=== PATIENT | male | born 1940 | race Caucasian/White ===

== ENCOUNTER 2018-01-08 10:44 | Inpatient (IN) | payer BC, OTHER ==
[2018-01-08 13:48] VITALS: BMI 29.2
--- NOTE | 2018-01-08 15:44 | CP.PCM.HP ---
History of Present Illness - History of Present Illness History of Present Illness: 77 y/o male with PMH CAD s/p PCI 14 years ago, HTN, Dyslipidemia was admitted to [facility] with chest pain and [place]. He underwent CABG on 12/28/17 and at present doing well. Post op developed lower extremity edema and difficulty with am bulation . t present transferred for admission to TCu for physical therapy At present complains of pain to both lower extremities and feeling tired . Denies any chest pain , palpitations,SOB. Denies any fever , chills, nausea vomiting , urinary sx r changes in bowel movements . 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, denies ETOH, drug or smoking Code status; Full Present on Admission - Present on Admission Any Indicators Present on Admission: No Review of Systems - Review of Systems All systems: reviewed and no additional remarkable complaints except Past Patient History - Infectious Disease Hx of Infectious Diseases: None - Tetanus Immunizations Tetanus Immunization: Unknown - Past Medical History & Family History Past Medical History?: Yes Past Family History: Reviewed and not pertinent - Past Social History Smoking Status: Never Smoked Chewing Tobacco Use: No Cigar Use: No Alcohol: None Drugs: Denies Home Situation {Lives}: Alone Domestic Violence: Negative Meds Allergies/Adverse Reactions: Allergies Allergy/AdvReac Type Severity Reaction Status Date / Time No Known Allergies Allergy Verified 01/08/18 13:44 Physical Exam - Constitutional Appears: Non-toxic, No Acute Distress - Head Exam Head Exam: ATRAUMATIC, NORMAL INSPECTION, NORMOCEPHALIC - Eye Exam Eye Exam: EOMI, Normal appearance, PERRL Pupil Exam: NORMAL ACCOMODATION - ENT Exam ENT Exam: Mucous Membranes Moist, Normal Exam - Respiratory Exam Respiratory Exam: Clear to Auscultation Bilateral, NORMAL BREATHING PATTERN. absent: Rales, Rhonchi, Wheezes - Cardiovascular Exam Cardiovascular Exam: REGULAR RHYTHM, RRR, +S1, +S2. absent: JVD Additional comments: middle chest CABG scar healing well - GI/Abdominal Exam GI & Abdominal Exam: Normal Bowel Sounds, Soft. absent: Distended, Guarding, Rebound, Tenderness - Rectal Exam Rectal Exam: Deferred - Extremities Exam Extremities exam: Positive for: pedal edema (2 +), tenderness, pedal pulses present - Back Exam Back exam: NORMAL INSPECTION - Neurological Exam Neurological exam: Alert, CN II-XII Intact, Oriented x3 - Psychiatric Exam Psychiatric exam: Normal Affect - Skin Skin Exam: Dry, Warm Assessment & Plan - Assessment and Plan (Free Text) Assessment: 77 y/o male with PMH CAD s/p PCI 14 years ago, HTN, Dyslipidemia was admitted to [facility] with chest pain and CA. He underwent CABG on 12/28/17 and at present doing well. Post op developed lower extremity edema and difficulty with ambulation . t present transferred for admission to TCu for physical therapy At present complains of pain to both lower extremities and feeling tired . Denies any chest pain , palpitations,SOB. Denies any fever , chills, nausea vomiting , urinary sx r changes in bowel movements . 1. Generalized weakness admit to TCU for PT 2. s/p CABG resume home meds 3.Hypertension resume home meds 4. Dyslipidemia 5. Lower extremity edema continue lasix and PT Consider Doppler US 6. Anemia Hgb 8.8 Most likely acute blood loss during surgery start Ferrous sulfate PO 7. DVT prophylaxis on Heparin
[2018-01-09 06:33] LABS: RBC 2.85 Mil/uL (4.40-5.90); WHITE BLOOD COUNT 10.3 K/uL (4.8-10.8)
[2018-01-09 06:34] LABS: BASO # 0.1 K/uL (0.0-0.2); BASO % 0.6 % (0.0-2.0); EOS # 0.5 K/uL (0.0-0.7); EOS % 5.3 % (0.0-4.0); LYMPH % 9.3 % (20.0-40.0); MEAN CELL VOLUME 94.7 fl (80.0-94.0); MEAN CORPUSCULAR HEMOGLOBIN 31.7 pg (27.0-31.0); MEAN CORPUSCULAR HGB CONC 33.5 g/dL (33.0-37.0); MEAN PLATELET VOLUME 9.2 fl (7.2-11.7); MONO # 1.1 K/uL (0.0-0.8); MONO % 10.6 % (0.0-10.0); NEUT # 7.7 K/uL (1.8-7.0); NEUT % 74.2 % (50.0-75.0); NRBC % 0.1 % (0.0-0.0); PLATELET COUNT 377 K/uL (130-400); RED CELL DISTRIBUTION WIDTH 17.9 % (11.5-14.5)
[2018-01-09 06:46] LABS: ALB/GLOB RATIO 0.9 (1.0-2.1); ALBUMIN 3.1 g/dL (3.5-5.0); CALCIUM 8.9 mg/dL (8.4-10.2)
[2018-01-09 06:52] LABS: INR 1.1; PROTHROMBIN TIME 12.4 Seconds (9.8-13.1)
[2018-01-09 06:55] LABS: PARTIAL THROMBOPLASTIN TIME 30.8 Seconds (25.6-37.1)
[2018-01-09] MEDS: Multivitamin With Minerals Tab PO SCH (08:25)
[2018-01-09] MEDS: Pantoprazole 40 mg EC Tab PO SCH (08:28)
[2018-01-09] MEDS ORDERED: Pantoprazole 40 mg EC Tab PO SCH (09:00)
[2018-01-09 09:52] LABS: ANISOCYTOSIS SLIGHT; BANDS 1 % (0-2); EOSINOPHIL 2 % (0-7); HYPOCHROMIC SLIGHT; LYMPHOCYTE 9 % (20-50); MONOCYTE 12 % (0-10); NEUTROPHIL 76 % (42-75); PLATELET ESTIMATE NORMAL (NORMAL); TOTAL CELLS COUNTED 100
[2018-01-09] MEDS: Enoxaparin 40 mg Syringe SC SCH (10:08)
[2018-01-10] MEDS: Enoxaparin 40 mg Syringe SC SCH (08:37)
[2018-01-10] MEDS: Multivitamin With Minerals Tab PO SCH (08:39)
[2018-01-10] MEDS: Pantoprazole 40 mg EC Tab PO SCH (08:39)
--- NOTE | 2018-01-10 11:25 | US ---
Date of service: 01/09/2018 PROCEDURE: Bilateral lower extremity venous duplex Doppler. HISTORY: R/O DVT COMPARISON: None available. TECHNIQUE: Bilateral common femoral, superficial femoral, popliteal and posterior tibial veins were evaluated. Flow was assessed with color Doppler, compressibility, assessment of phasic flow and augmentation response. FINDINGS: COMMON FEMORAL VEIN: Right CFV: Unremarkable. Left CFV: Unremarkable. SUPERFICIAL FEMORAL VEIN: Right SFV: Unremarkable. Left SFV: Unremarkable. POPLITEAL VEIN: Right Popliteal: Unremarkable. Left Popliteal: Unremarkable. POSTERIOR TIBIAL VEIN: Right PTV: Unremarkable. Left PTV: Unremarkable. OTHER FINDINGS: None. IMPRESSION: No evidence of deep venous thrombosis in the right or left lower extremity..
--- NOTE | 2018-01-10 11:34 | CP.PCM.PN ---
Subjective - Date & Time of Evaluation Date of Evaluation: 01/10/18 Time of Evaluation: 11:30 - Subjective Subjective: Patient seen and examined bedside . Sitting in the chair in NAD. Feeling a little better . still complains of edema , swelling and discomfort from his LE . Has some increased warmth Hemodynamically stable, afebrile No acute issues overnight doppler Us negative for DVT Objective - Vital Signs/Intake and Output Vital Signs (last 24 hours): Temp Pulse Resp BP Pulse Ox 97.5 F L 68 20 110/52 L 99 01/10/18 08:36 01/10/18 08:36 01/10/18 08:36 01/10/18 08:39 01/10/18 08:36 - Medications Medications: Current Medications Acetaminophen (Tylenol 325mg Tab) 650 mg PO Q6 PRN PRN Reason: Pain, Mild (1-3) Last Admin: 01/08/18 20:50 Dose: 650 mg Acetaminophen (Tylenol 325mg Tab) 650 mg PO Q6 PRN PRN Reason: Fever >100.4 F Amiodarone HCl (Cordarone) 200 mg PO Q12 [facility] Last Admin: 01/10/18 08:39 Dose: 200 mg Amlodipine Besylate (Norvasc) 5 mg PO DAILY [facility] Last Admin: 01/10/18 08:39 Dose: 5 mg Aspirin (Aspirin Chewable) 81 mg PO DAILY [facility] Last Admin: 01/10/18 08:38 Dose: 81 mg Atorvastatin Calcium (Lipitor) 20 mg PO HS [facility] Last Admin: 01/09/18 21:42 Dose: 20 mg Docusate Sodium (Colace) 100 mg PO BID [facility] Last Admin: 01/10/18 08:38 Dose: 100 mg Enoxaparin Sodium (Lovenox) 40 mg SC DAILY [facility]; Protocol Last Admin: 01/10/18 08:37 Dose: 40 mg Fenofibrate (Tricor) 145 mg PO DAILY [facility] Last Admin: 01/10/18 08:39 Dose: 145 mg Ferrous Sulfate (Feosol) 325 mg PO Q12 [facility] Last Admin: 01/10/18 08:39 Dose: 325 mg Furosemide (Lasix) 40 mg PO DAILY [facility] Last Admin: 01/10/18 08:39 Dose: 40 mg Metoprolol Tartrate (Lopressor) 50 mg PO Q12 [facility] Last Admin: 01/10/18 08:39 Dose: 50 mg Multivitamins/Minerals (Therapeutic-M Tab) 1 tab PO DAILY [facility] Last Admin: 01/10/18 08:39 Dose: 1 tab Pantoprazole Sodium (Protonix Ec Tab) 40 mg PO DAILY [facility] Last Admin: 01/10/18 08:39 Dose: 40 mg Temazepam (Restoril) 15 mg PO DAILY PRN PRN Reason: bedtime Last Admin: 01/09/18 21:43 Dose: 15 mg - Labs Labs: 01/09/18 05:40 01/09/18 05:40 PT 12.4 Seconds (9.8-13.1) 01/09/18 05:40 INR 1.1 01/09/18 05:40 APTT 30.8 Seconds (25.6-37.1) 01/09/18 05:40 - Constitutional Appears: Non-toxic, No Acute Distress - Head Exam Head Exam: ATRAUMATIC, NORMAL INSPECTION, NORMOCEPHALIC - Eye Exam Eye Exam: EOMI, Normal appearance, PERRL Pupil Exam: NORMAL ACCOMODATION - ENT Exam ENT Exam: Mucous Membranes Moist, Normal Exam - Neck Exam Neck Exam: Full ROM, Normal Inspection - Respiratory Exam Respiratory Exam: Clear to Ausculation Bilateral, NORMAL BREATHING PATTERN. absent: Rales, Rhonchi, Wheezes - Cardiovascular Exam Cardiovascular Exam: REGULAR RHYTHM, RRR, +S1, +S2. absent: JVD Additional comments: midline chest surgical incision healed well, no erythema - GI/Abdominal Exam GI & Abdominal Exam: Soft, Normal Bowel Sounds - Extremities Exam Additional comments: bilateral LE edema 3 %+ surgical incisions to Le healing well Some increased redness and warmth - Back Exam Back Exam: NORMAL INSPECTION - Neurological Exam Neurological Exam: Alert, Awake, CN II-XII Intact, Oriented x3 - Psychiatric Exam Psychiatric exam: Normal Affect - Skin Skin Exam: Dry, Warm Assessment and Plan - Assessment and Plan (Free Text) Assessment: 77 y/o male with PMH CAD s/p PCI 14 years ago, HTN, Dyslipidemia was admitted to [facility] with chest pain and [place]. He underwent CABG on 12/28/17 and at present doing well. Post op developed lower extremity edema and difficulty with ambulation . Admitted in TCU for physical therapy At present complains of pain to both lower extremities and some warmth 1. Generalized weakness feeling better Continue PT/OT 2. s/p CABG continue current therapy Statin , ASA,metoprolol,amiodarone, lasix 3.Hypertension controlled on Norvasc , Metoprolol, lasix 4. Dyslipidemia on Sttain 5. Lower extremity edema continue lasix and PT Doppler US showed no DVT Start Keflex Po empirically for cellulitis 6. Anemia Hgb 8.8 Most likely acute blood loss during surgery on Ferrous sulfate PO 7. DVT prophylaxis on Lovenox
[2018-01-11] MEDS: Enoxaparin 40 mg Syringe SC SCH (09:28)
[2018-01-11] MEDS: Pantoprazole 40 mg EC Tab PO SCH (09:30)
[2018-01-11] MEDS: Multivitamin With Minerals Tab PO SCH (09:30)
[2018-01-12] MEDS: Enoxaparin 40 mg Syringe SC SCH (09:35)
[2018-01-12] MEDS: Multivitamin With Minerals Tab PO SCH (09:36)
[2018-01-12] MEDS: Pantoprazole 40 mg EC Tab PO SCH (09:38)
[2018-01-13] MEDS: Enoxaparin 40 mg Syringe SC SCH (08:33)
[2018-01-13] MEDS: Multivitamin With Minerals Tab PO SCH (08:34)
[2018-01-13] MEDS: Pantoprazole 40 mg EC Tab PO SCH (08:34)
[2018-01-14] MEDS: Enoxaparin 40 mg Syringe SC SCH (09:03)
[2018-01-14] MEDS: Multivitamin With Minerals Tab PO SCH (09:05)
[2018-01-14] MEDS: Pantoprazole 40 mg EC Tab PO SCH (09:06)
[2018-01-15 08:28] VITALS: RESP 20
[2018-01-15] MEDS: Enoxaparin 40 mg Syringe SC SCH (08:54)
[2018-01-15] MEDS: Pantoprazole 40 mg EC Tab PO SCH (08:54)
[2018-01-15] MEDS: Multivitamin With Minerals Tab PO SCH (08:55)
--- NOTE | 2018-01-15 12:29 | CP.PCM.PN ---
Subjective - Date & Time of Evaluation Date of Evaluation: 01/15/18 Time of Evaluation: 12:28 - Subjective Subjective: pt doing well no complaints at this time denies cp sob n/v/c/d hd stable nad Objective - Vital Signs/Intake and Output Vital Signs (last 24 hours): Temp Pulse Resp BP Pulse Ox 97.8 F 85 20 132/85 98 01/15/18 08:25 01/15/18 08:54 01/15/18 08:25 01/15/18 08:54 01/15/18 08:25 Vitals Reviewed GEN: WDWN, alert, cooperative HEENT: NCAT, PERRL, EOMI HEART: RRR, +S1S2, NO MRG LUNG: CTAB, NO WRR ABD: soft, NT, ND, No HSM, No masses EXT: normal pedal pulses NEURO: awake, alert SKIN: warm, dry PSYCH: normal mood, normal affect - Medications Medications: Current Medications Acetaminophen (Tylenol 325mg Tab) 650 mg PO Q6 PRN PRN Reason: Pain, Mild (1-3) Last Admin: 01/08/18 20:50 Dose: 650 mg Acetaminophen (Tylenol 325mg Tab) 650 mg PO Q6 PRN PRN Reason: Fever >100.4 F Amiodarone HCl (Cordarone) 200 mg PO Q12 [facility] Last Admin: 01/15/18 08:52 Dose: 200 mg Amlodipine Besylate (Norvasc) 5 mg PO DAILY [facility] Last Admin: 01/15/18 08:54 Dose: 5 mg Aspirin (Aspirin Chewable) 81 mg PO DAILY [facility] Last Admin: 01/15/18 08:52 Dose: 81 mg Atorvastatin Calcium (Lipitor) 20 mg PO HS [facility] Last Admin: 01/14/18 21:53 Dose: 20 mg Cephalexin Monohydrate (Keflex) 500 mg PO Q8 [facility]; Protocol Last Admin: 01/15/18 08:53 Dose: 500 mg Docusate Sodium (Colace) 100 mg PO BID [facility] Last Admin: 01/15/18 08:52 Dose: 100 mg Enoxaparin Sodium (Lovenox) 40 mg SC DAILY [facility]; Protocol Last Admin: 01/15/18 08:54 Dose: 40 mg Fenofibrate (Tricor) 145 mg PO DAILY [facility] Last Admin: 01/15/18 08:55 Dose: 145 mg Ferrous Sulfate (Feosol) 325 mg PO Q12 [facility] Last Admin: 01/15/18 08:53 Dose: 325 mg Furosemide (Lasix) 40 mg PO DAILY [facility] Last Admin: 01/15/18 08:53 Dose: 40 mg Metoprolol Tartrate (Lopressor) 50 mg PO Q12 [facility] Last Admin: 01/15/18 08:53 Dose: 50 mg Multivitamins/Minerals (Therapeutic-M Tab) 1 tab PO DAILY [facility] Last Admin: 01/15/18 08:55 Dose: 1 tab Pantoprazole Sodium (Protonix Ec Tab) 40 mg PO DAILY [facility] Last Admin: 01/15/18 08:54 Dose: 40 mg Temazepam (Restoril) 15 mg PO DAILY PRN PRN Reason: bedtime Last Admin: 01/13/18 21:18 Dose: 15 mg - Labs Labs: 01/09/18 05:40 01/09/18 05:40 PT 12.4 Seconds (9.8-13.1) 01/09/18 05:40 INR 1.1 01/09/18 05:40 APTT 30.8 Seconds (25.6-37.1) 01/09/18 05:40 Assessment and Plan - Assessment and Plan (Free Text) Plan: 77 y/o male with PMH CAD s/p PCI 14 years ago, HTN, Dyslipidemia was admitted to [facility] with chest pain and [place]. He underwent CABG on 12/28/17 and at present doing well. Post op developed lower extremity edema and difficulty with ambulation . Admitted in TCU for physical therapy At present complains of pain to both lower extremities and some warmth 1. Generalized weakness feeling better Continue PT/OT 2. s/p CABG continue current therapy Statin, ASA, metoprolol, amiodarone, lasix 3.Hypertension controlled on Norvasc, Metoprolol, lasix 4. Dyslipidemia on Statin 5. Lower extremity edema continue lasix and PT Doppler US showed no DVT Start Keflex Po empirically for cellulitis 6. Anemia Hgb 8.8 Most likely acute blood loss during surgery on Ferrous sulfate PO 7. DVT prophylaxis on Lovenox
[2018-01-16] MEDS: Enoxaparin 40 mg Syringe SC SCH (08:50)
[2018-01-16] MEDS: Pantoprazole 40 mg EC Tab PO SCH (08:51)
[2018-01-16] MEDS: Multivitamin With Minerals Tab PO SCH (08:51)
[2018-01-17] MEDS: Multivitamin With Minerals Tab PO SCH (09:27)
[2018-01-17] MEDS: Pantoprazole 40 mg EC Tab PO SCH (09:27)
[2018-01-17 13:19] LABS: HEMOGLOBIN 11.2 g/dL (12.0-18.0); MEAN CORPUSCULAR HEMOGLOBIN 32.3 pg (27.0-31.0); MEAN CORPUSCULAR HGB CONC 33.3 g/dL (33.0-37.0); RBC 3.48 Mil/uL (4.40-5.90); RED CELL DISTRIBUTION WIDTH 19.2 % (11.5-14.5); WHITE BLOOD COUNT 5.8 K/uL (4.8-10.8)
[2018-01-17 13:38] LABS: CALCIUM 9.7 mg/dL (8.4-10.2)
[2018-01-17] MEDS: Enoxaparin 40 mg Syringe SC SCH (17:28)
--- NOTE | 2018-01-17 17:39 | CP.PCM.PN ---
Subjective - Date & Time of Evaluation Date of Evaluation: 01/17/18 Time of Evaluation: 16:00 - Subjective Subjective: Patient seen and examined. Denied any complaint. Objective - Vital Signs/Intake and Output Vital Signs (last 24 hours): Temp Pulse Resp BP Pulse Ox 98.1 F 66 20 105/65 98 01/17/18 16:32 01/17/18 16:32 01/17/18 16:32 01/17/18 16:32 01/17/18 16:32 - Medications Medications: Current Medications Acetaminophen (Tylenol 325mg Tab) 650 mg PO Q6 PRN PRN Reason: Pain, Mild (1-3) Last Admin: 01/08/18 20:50 Dose: 650 mg Acetaminophen (Tylenol 325mg Tab) 650 mg PO Q6 PRN PRN Reason: Fever >100.4 F Amiodarone HCl (Cordarone) 200 mg PO Q12 [facility] Last Admin: 01/17/18 09:25 Dose: 200 mg Amlodipine Besylate (Norvasc) 5 mg PO DAILY [facility] Last Admin: 01/17/18 09:27 Dose: 5 mg Aspirin (Aspirin Chewable) 81 mg PO DAILY [facility] Last Admin: 01/17/18 09:25 Dose: 81 mg Atorvastatin Calcium (Lipitor) 20 mg PO HS [facility] Last Admin: 01/16/18 21:52 Dose: 20 mg Docusate Sodium (Colace) 100 mg PO BID [facility] Last Admin: 01/17/18 17:28 Dose: 100 mg Enoxaparin Sodium (Lovenox) 40 mg SC DAILY [facility]; Protocol Last Admin: 01/17/18 17:28 Dose: 40 mg Fenofibrate (Tricor) 145 mg PO DAILY [facility] Last Admin: 01/17/18 09:27 Dose: 145 mg Ferrous Sulfate (Feosol) 325 mg PO Q12 [facility] Last Admin: 01/17/18 09:26 Dose: 325 mg Furosemide (Lasix) 40 mg PO DAILY [facility] Last Admin: 01/17/18 09:32 Dose: 40 mg Metoprolol Tartrate (Lopressor) 50 mg PO Q12 [facility] Last Admin: 01/17/18 09:26 Dose: 50 mg Multivitamins/Minerals (Therapeutic-M Tab) 1 tab PO DAILY [facility] Last Admin: 01/17/18 09:27 Dose: 1 tab Pantoprazole Sodium (Protonix Ec Tab) 40 mg PO DAILY [facility] Last Admin: 01/17/18 09:27 Dose: 40 mg Temazepam (Restoril) 15 mg PO DAILY PRN PRN Reason: bedtime Last Admin: 01/16/18 21:50 Dose: 15 mg - Labs Labs: 01/17/18 13:14 01/17/18 13:14 PT 12.4 Seconds (9.8-13.1) 01/09/18 05:40 INR 1.1 01/09/18 05:40 APTT 30.8 Seconds (25.6-37.1) 01/09/18 05:40 - Constitutional Appears: No Acute Distress - Head Exam Head Exam: ATRAUMATIC - Eye Exam Eye Exam: absent: Scleral icterus - ENT Exam ENT Exam: Mucous Membranes Moist - Neck Exam Neck Exam: absent: Meningismus - Respiratory Exam Respiratory Exam: absent: Chest Wall Tenderness, Rales, Rhonchi, Wheezes, Respiratory Distress - Cardiovascular Exam Cardiovascular Exam: REGULAR RHYTHM, +S1, +S2 - GI/Abdominal Exam GI & Abdominal Exam: Soft. absent: Tenderness - Rectal Exam Rectal Exam: Deferred - Back Exam Back Exam: NORMAL INSPECTION - Neurological Exam Neurological Exam: Alert, Oriented x3 - Psychiatric Exam Psychiatric exam: Flat Affect, Normal Mood - Skin Skin Exam: Dry, Intact Assessment and Plan - Assessment and Plan (Free Text) Assessment: 77 yo male with history of CAD (PCI 14 years ago), HTN and HLD was admitted at [facility] because of acute [place]. Patient underwent CABG on 12/28/17 and at present was doing well. He was admitted in TCU for physical therapy At present complains of pain to both lower extremities and some warmth 1. Post CABG continue cardiac PT continue statin, ASA, Metoprolol, Amiodarone, Lasix 2. Generalized weakness continue to improve continue PT/OT 3. Hypertension BP controlled on Norvasc, Metoprolol, Lasix 4. HLD continue Lipitor 5. Lower extremity edema continue Lasix and PT Venous doppler negative for DVT 6. Anemia Hgb 8.8 Most likely from blood loss during surgery continue FeSO4 7. DVT prophylaxis on Lovenox
[2018-01-18] MEDS: Enoxaparin 40 mg Syringe SC SCH (08:47)
[2018-01-18] MEDS: Pantoprazole 40 mg EC Tab PO SCH (08:48)
[2018-01-18] MEDS: Multivitamin With Minerals Tab PO SCH (08:48)
[2018-01-19 08:14] VITALS: BP 102/65; PULSE 74; TEMP 97.8; O2SAT 97
[2018-01-19] MEDS: Enoxaparin 40 mg Syringe SC SCH (09:17)
[2018-01-19] MEDS: Pantoprazole 40 mg EC Tab PO SCH (09:19)
[2018-01-19] MEDS: Multivitamin With Minerals Tab PO SCH (09:19)
--- NOTE | 2018-01-19 12:36 | CP.PCM.DIS ---
Provider - Provider Date of Admission: 01/08/18 14:12 Attending physician: Bridger Fountain MD Consults: 01/08/18 14:57 Case Management Referral Routine Comment: Physician Instructions: Reason For Exam: Reason for Referral: Discharge Planning 01/08/18 19:57 Wound Care [Nursing Referral for Wound Care] Routine Comment: Physician Instructions: Reason For Exam: s/p cabg 12/28/17 Time Spent in preparation of Discharge (in minutes): 25 Diagnosis - Discharge Diagnosis (1) Status post aorto-coronary artery bypass graft Status: Acute Comment: post GA followed with CABG. continue ASA, statin, Metoprolol, Amiodarone and Lasix (2) HTN (hypertension) Status: Chronic Comment: BP stable. continue Amlodipine, Metoprolol and Lasix (3) Pedal edema Status: Acute Comment: continue Lasix. doppler negative for DVT (4) Anemia Status: Acute Comment: improving. probably secondary to blood loss from surgery. continue FeSO4 Hospital Course - Lab Results Lab Results: Most Recent Lab Values WBC 5.8 K/uL (4.8-10.8) 01/17/18 13:14 RBC 3.48 Mil/uL (4.40-5.90) L 01/17/18 13:14 Hgb 11.2 g/dL (12.0-18.0) L D 01/17/18 13:14 Hct 33.7 % (35.0-51.0) L 01/17/18 13:14 MCV 97.0 fl (80.0-94.0) H D 01/17/18 13:14 MCH 32.3 pg (27.0-31.0) H 01/17/18 13:14 MCHC 33.3 g/dL (33.0-37.0) 01/17/18 13:14 RDW 19.2 % (11.5-14.5) H 01/17/18 13:14 Plt Count 469 K/uL (130-400) H 01/17/18 13:14 MPV 9.2 fl (7.2-11.7) 01/09/18 05:40 Neut % (Auto) 74.2 % (50.0-75.0) 01/09/18 05:40 Lymph % (Auto) 9.3 % (20.0-40.0) L 01/09/18 05:40 [place] % (Auto) 10.6 % (0.0-10.0) H 01/09/18 05:40 Eos % (Auto) 5.3 % (0.0-4.0) H 01/09/18 05:40 Baso % (Auto) 0.6 % (0.0-2.0) 01/09/18 05:40 Neut # (Auto) 7.7 K/uL (1.8-7.0) H 01/09/18 05:40 Lymph # (Auto) 1.0 K/uL (1.0-4.3) 01/09/18 05:40 [place] # (Auto) 1.1 K/uL (0.0-0.8) H 01/09/18 05:40 Eos # (Auto) 0.5 K/uL (0.0-0.7) 01/09/18 05:40 Baso # (Auto) 0.1 K/uL (0.0-0.2) 01/09/18 05:40 Neutrophils % (Manual) 76 % (42-75) H 01/09/18 05:40 Band Neutrophils % 1 % (0-2) 01/09/18 05:40 Lymphocytes % (Manual) 9 % (20-50) L 01/09/18 05:40 Monocytes % (Manual) 12 % (0-10) H 01/09/18 05:40 Eosinophils % (Manual) 2 % (0-7) 01/09/18 05:40 Platelet Estimate Normal (NORMAL) 01/09/18 05:40 Hypochromasia (manual) Slight 01/09/18 05:40 Anisocytosis (manual) Slight 01/09/18 05:40 PT 12.4 Seconds (9.8-13.1) 01/09/18 05:40 INR 1.1 01/09/18 05:40 APTT 30.8 Seconds (25.6-37.1) 01/09/18 05:40 Sodium 140 mmol/l (132-148) 01/17/18 13:14 Potassium 4.7 MMOL/L (3.6-5.0) 01/17/18 13:14 Chloride 101 mmol/L (98-107) 01/17/18 13:14 Carbon Dioxide 27 mmol/L (22-30) 01/17/18 13:14 Anion Gap 17 (10-20) 01/17/18 13:14 BUN 29 mg/dl (9-20) H 01/17/18 13:14 Creatinine 1.7 mg/dl (0.8-1.5) H 01/17/18 13:14 Est GFR ( Amer) 48 01/17/18 13:14 Est GFR (Non-Af Amer) 39 01/17/18 13:14 Random Glucose 78 mg/dL (75-110) 01/17/18 13:14 Calcium 9.7 mg/dL (8.4-10.2) 01/17/18 13:14 Total Bilirubin 1.0 mg/dl (0.2-1.3) 01/09/18 05:40 AST 63 U/L (17-59) H 01/09/18 05:40 ALT 81 U/L (21-72) H 01/09/18 05:40 Alkaline Phosphatase 130 U/L (38-126) H 01/09/18 05:40 Total Protein 6.6 G/DL (6.3-8.2) 01/09/18 05:40 Albumin 3.1 g/dL (3.5-5.0) L 01/09/18 05:40 Globulin 3.5 gm/dL (2.2-3.9) 01/09/18 05:40 Albumin/Globulin Ratio 0.9 (1.0-2.1) L 01/09/18 05:40 - Hospital Course Hospital Course: 77 yo male with history of CAD (PCI 14 yrs ago), HTN and HDL admitted at [facility] with GA, underwent CABG on 12/28/17. Post op was complicated with leg edema and difficulty ambulation. He was transferred to [facility] TCU for cardiac aidee ab and did well. Today patient is discharged in stable condition. Discharge Exam - Head Exam Head Exam: ATRAUMATIC - Eye Exam Eye Exam: absent: Scleral icterus - ENT Exam ENT Exam: Mucous Membranes Moist - Respiratory Exam Respiratory Exam: absent: Rales, Rhonchi, Wheezes, Respiratory Distress - Cardiovascular Exam Cardiovascular Exam: REGULAR RHYTHM, +S1, +S2 - GI/Abdominal Exam GI & Abdominal Exam: Soft. absent: Tenderness - Rectal Exam Rectal Exam: Deferred - Extremities Exam Extremities exam: pedal edema - Back Exam Back exam: NORMAL INSPECTION - Neurological Exam Neurological exam: Alert, Oriented x3 - Psychiatric Exam Psychiatric exam: Normal Affect - Skin Skin Exam: Dry, Intact Discharge Plan - Discharge Medications Prescriptions: Amiodarone [Cordarone] 200 mg PO Q12 #60 tab amLODIPine [Norvasc] 5 mg PO DAILY #30 tab Docusate Sodium [Colace] 100 mg PO Q12 #20 capsule Ferrous Sulfate [Feosol] 325 mg PO Q12 #60 tab Furosemide [Lasix] 40 mg PO DAILY #30 tab Metoprolol Tartrate [Lopressor] 50 mg PO Q12 #60 tablet Pantoprazole Sodium [Protonix] 40 mg PO DAILY #30 tablet. Temazepam [Restoril] 15 mg PO DAILY PRN #20 cap PRN Reason: bedtime - Follow Up Plan Condition: GOOD Disposition: HOME/ ROUTINE
== END 2018-01-19 15:13 | disposition home health service (06) | DRG 949 ==
LOC: H.TCU 14:12
PROVIDERS: ADMIT Hospitalist; ATTEND Hospitalist
PROC: F08Z4FZ Home Management Treatment using Assistive, Adaptive, Supportive or Protective Equipment (ICD-10-PCS; principal; 2018-01-09)
PROC: F07M6FZ Therapeutic Exercise Treatment of Musculoskeletal System - Whole Body using Assistive, Adaptive, Supportive or Protective Equipment (ICD-10-PCS; 2018-01-09)
DX: Z48.812 Encounter for surgical aftercare following surgery on the circulatory system (principal); I22.9 Subsequent ST elevation (STEMI) myocardial infarction of unspecified site; D62 Acute posthemorrhagic anemia; E78.5 Hyperlipidemia, unspecified; I10 Essential (primary) hypertension; I25.10 Atherosclerotic heart disease of native coronary artery without angina pectoris; Z82.49 Family history of ischemic heart disease and other diseases of the circulatory system; Z95.1 Presence of aortocoronary bypass graft; Z98.61 Coronary angioplasty status; M79.604 Pain in right leg; M79.605 Pain in left leg; R53.1 Weakness; R60.0 Localized edema; D50.0 Iron deficiency anemia secondary to blood loss (chronic)